=== PATIENT | male | born 1950 | race Two or more races ===

== ENCOUNTER 2024-10-05 12:28 | Emergency (ER) | payer OTHER ==
[2024-10-05 12:35] VITALS: BP 146/79; PULSE 86; RESP 18; TEMP 98.4; BMI 27.3
[2024-10-05] MEDS ORDERED: ACETAMINOPHEN 500 MG TABLET (FP) ONE (14:21)
[2024-10-05] MEDS: ACETAMINOPHEN 500 MG TABLET (FP) PO ONE (14:23)
== END 2024-10-05 14:35 | disposition home or self-care (01) ==
LOC: JERFT 12:28
DX: J18.9 Pneumonia, unspecified organism (principal); R05.9 Cough, unspecified; R09.81 Nasal congestion; R07.89 Other chest pain; R42 Dizziness and giddiness; Z20.822 Contact with and (suspected) exposure to COVID-19
CPT/HCPCS: 0241U-QW; 71046-TC-FY; 93005; 93010; 99285-25

== ENCOUNTER 2025-02-14 15:57 | Emergency (ER) | payer OTHER ==
[2025-02-14 16:10] VITALS: BP 98/67; PULSE 82; RESP 16; TEMP 98.4; BMI 27.3
[2025-02-14] MEDS ORDERED: ACETAMINOPHEN 500 MG TABLET (FP) ONE (16:28)
[2025-02-14] MEDS: ACETAMINOPHEN 500 MG TABLET (FP) PO ONE (16:52)
== END 2025-02-14 18:35 | disposition home or self-care (01) ==
LOC: JER 15:57
DX: R05.3 Chronic cough (principal); R09.81 Nasal congestion; R06.02 Shortness of breath; R07.89 Other chest pain
CPT/HCPCS: 0241U-QW; 71046-TC-FY; 71250-TC; 93005; 93010; 99285-25